=== PATIENT | female | born 1965 | race Caucasian/White ===

== ENCOUNTER 2021-03-16 18:22 | Emergency (ER) | payer OTHER, SELFPAY ==
--- NOTE | ~2021-03-16 | XR_ITS ---
EXAMINATION: XR chest 2V DATE: 03/16/2021 18:49 INDICATION: Cough and wheezing. TECHNIQUE: Frontal and lateral views of the chest were obtained. COMPARISON: None. FINDINGS: The chest demonstrates clear lungs without pneumonia, pleural effusion, or pneumothorax. Th e heart size is normal. IMPRESSION: 1. No acute cardiopulmonary disease. Reviewed, dictated and finalized at location A.
[2021-03-16 18:36] VITALS: BP 131/74; PULSE 66; RESP 16; TEMP 37; O2SAT 98
--- NOTE | 2021-03-16 18:36 | ED.URI ---
HPI - URI/Sore Throat General Chief Complaint: Upper Respiratory Infection Stated Complaint: Fever, chills, shortness of breath, coughing Time Seen by Provider: 03/16/21 18:36 Source: patient and RN notes reviewed Mode of arrival: ambulatory Limitations: no limitations History of Present Illness HPI Narrative: 55-year-old female presents to the [facility] with complaints of fever, chills, shortness of breath and coughing. Patient has a history of asthma. States she had 101 fever at work and was sent home. Patient reports that she had a positive exposure on Wednesday and again on Wednesday at work. Had a negative Covid rapid test done in [place]. Related Data Home Medications Medication Instructions Recorded Confirmed sertraline [Zoloft] 200 mg PO DAILY 07/08/19 03/16/21 Allergies Allergy/AdvReac Type Severity Reaction Status Date / Time moxifloxacin [From Avelox] Allergy Other Verified 03/16/21 18:51 Penicillins Allergy Swelling Verified 03/16/21 18:51 of Lip/Tongue/Throat Review of Systems Constitutional: Constitutional: Reports as per HPI, Reports chills and Reports fever(s) Eyes: Eyes: Reports no additional eye complaints ENT: Reports as per HPI and Reports nasal congestion Cardiovascular: Cardiovascular: Reports no additional cardiovascular complaints Respiratory: Respiratory: Reports as per HPI, Reports cough, Denies dyspnea and Reports wheezing Gastrointestinal: Gastrointestinal: Reports no additional gastrointestinal complaints, Denies abdominal pain, Denies nausea and Denies vomiting Genitourinary: Genitourinary: Reports no additional female genitourinary complaints Musculoskeletal: Musculoskeletal: Reports no additional musculoskeletal complaints Integumentary/Breasts: Skin/Breast: Reports system reviewed and no additional complaints, except as docu Neurologic: Reports system reviewed and no additional complaints, except as documented Psychiatric: Psychiatric: Reports no additional psychiatric complaints Allergic/Immunologic: Allergic/Immunologic: Reports no additional allergic/immunologic complaints ON LICENSE OF [facility] Past Medical History Medical History (Updated 03/16/21 @ 20:18 by Margie Denise) Asthma Dental abscess Sepsis Surgical History Surgical History Hx of sinus surgery Social History Social History Alcohol intake: never Substance use: never Comments At the time of my signature, I reviewed and agree with the nursing past medical, surgical, social, and family history. There is no relevant family history pertinent to the patient complaint. Exam Const: General: no acute distress, alert and ill appearing acutely Nutritional Appearance: obese Orientation/consciousness: patient oriented x3 Limitations: no limitations HENMT: Head: normal to inspection Ears: external ears normal, TM's normal bilaterally and EAC's normal Eyes: Conjunctivae: conjunctivae normal Pupils: Equal, round and reactive pupils present Neck: Neck: normal visual inspection, no lymphadenopathy and no meningeal signs Chest: Chest palpation & inspection: normal inspection of the chest Resp: Effort & Inspection: normal respiratory effort Auscultation: wheezes expiratory wheezes and throughout Cardio: Rate: regular rate GI: GI Palp: Yes Soft to palpation and No Tenderness to palpation present (GI) : General: Yes no CVA tenderness Back/Spine/Pelvis: Back: no CVA tenderness Skin: General skin exam: normal color Rashes: no rashes Wounds: no wounds Neuro: General: patient oriented x3, moves all extremities and no focal motor deficits Speech: normal speech Gait exam (Neuro): Normal gait present Extrem: General: normal to inspection and no pedal edema Psych: Appearance: grossly normal Mental Status: mental status grossly normal Affect: normal affect Attitude: cooperative Thought content: Yes Nor
[2021-03-16] MEDS: predniSONE 20 MG TABLET 40 MG PO (18:55)
[2021-03-16] MEDS: ALBUTEROL SULFATE NEB 2.5 MG/3 ML INH INHALATION (18:56)
[2021-03-16] MEDS: IPRATROPIUM BR 0.02% INH SOLN 0.5 MG/2.5 ML VIAL INHALATION (18:56)
[2021-03-16 19:30] VITALS: PULSE 68; RESP 20; O2SAT 98
[2021-03-18 19:42] LABS: SARS-CoV-2 RNA PCR Negative
== END 2021-03-16 19:45 | disposition home or self-care (01) ==
PROVIDERS: Emergency Provider Nurse Practitioner
DX: J45.901 Unspecified asthma with (acute) exacerbation (principal); Z20.822 Contact with and (suspected) exposure to COVID-19
CPT/HCPCS: 71046; 99213; C9803; G0463; J7512; U0003; U0005

== ENCOUNTER 2021-06-02 11:18 | Emergency (ER) | payer OTHER, SELFPAY ==
--- NOTE | ~2021-06-02 | XR_ITS ---
EXAMINATION: XR chest 2V DATE: 06/02/2021 11:49 INDICATION: Cough and shortness of breath TECHNIQUE: PA and lateral views of the chest are obtained. COMPARISON: 03/16/2021 FINDINGS: The lungs are free of acute opacities. There is no pleural effusion or pneumothorax. The ca rdiomediastinal silhouette is normal. Thoracic dextroscoliosis is noted. IMPRESSION: 1. No acute cardiopulmonary abnormality. Reviewed, dictated and finalized at location B. ONHOLE MAKER
[2021-06-02 11:26] VITALS: BP 127/73; PULSE 60; RESP 20; TEMP 37.2; O2SAT 98
--- NOTE | 2021-06-02 11:33 | ED.GENADULT ---
HPI - General Adult General Chief complaint: Upper Respiratory Infection Stated complaint: Cough/Runny Nose Time Seen by Provider: 06/02/21 11:22 Source: patient Mode of arrival: ambulatory Limitations: no limitations History of Present Illness HPI narrative: 55 y/o female. PMHx MDD, Chronic Asthma, Former Smoker, Obesity, [place]. Presents to [facility] today with acute complaints of non-productive cough and intermittent dyspnea for the past 48 hours. She is followed closely and managed by OP Pulmonology MD Tineo. Client seen in pulmonology clinic on 05/29/2021, and started on additional Z-Pack for asthma exacerbation. In addition, patient resumes CS Laba inhaler along with the rescue albuterol inhaler. Patient tells me that she was 'starting to feel better' with her Z-Pack, and now has developed worsening cough once more. Patient reports to have been around a family member who has pneumonia and she is concerned for potential CAP development. No fever, chills. No chest pain, palpitations, edema. No Covid 19 exposure or concern. No additional acute c/o illness upon PE. Related Data Home Medications Medication Instructions Recorded Confirmed sertraline [Zoloft] 100 mg PO DAILY 07/08/19 06/02/21 fluticasone propion-salmeterol See Rx Instructions .ROUTE .COMPLEX 06/02/21 06/02/21 [Wixela Inhub] meloxicam 7.5 mg PO BID 06/02/21 06/02/21 Allergies Allergy/AdvReac Type Severity Reaction Status Date / Time Iodinated Contrast Media Allergy Severe Rash Verified 06/02/21 11:26 moxifloxacin [From Avelox] Allergy Other Verified 06/02/21 11:26 Penicillins Allergy Swelling Verified 06/02/21 11:26 of Lip/Tongue/Throat Review of Systems Review of Systems: CONSTITUTIONAL: Denies fever, chills, sweats. EYES: Denies visual changes, redness, discharge. ENT: Denies rhinorrhea, congestion, sore throat, otalgia. CARDIOVASCULAR: Denies chest pain, palpitations, edema. RESPIRATORY: Positive cough, dyspnea. Denies wheezing. GASTROINTESTINAL: Denies abdominal pain, nausea, vomiting, diarrhea. GENITOURINARY: Denies dysuria, hematuria, abnormal discharge SKIN: Denies rash or itching. MUSCULOSKELETAL: Denies acute back pain, joint pain, or myalgia. NEUROLOGIC: Denies numbness, or focal weakness. PSYCHIATRIC: Denies anxiety or depression. All systems reviewed & are unremarkable except as noted in HPI and below PMFSH Past Medical History Medical History Asthma Dental abscess Sepsis Surgical History Surgical History Hx of sinus surgery Social History Social History Smoking packs per day: 2 Smoking cigarettes per day: 40.0 Years smoked: 25 Smoking pack-years: 50.00 Smoking status: Former smoker Alcohol intake: never Substance use: never Gender identity (if verbalized by the patient): Female Exam Narrative: GENERAL: This is a well-nourished, well-developed adult, in no apparent distress. HEAD: normocephalic, atraumatic. EYES: PERRL. Sclera clear/white. EARS: External ears normal NOSE: External nose normal. Positive Rhinorrhea, no obstruction, nares patent. THROAT: Mucous membranes moist, posterior pharynx clear. PND. No exudates. NECK: Neck supple, non-tender without lymphadenopathy, masses or thyromegaly. CARDIOVASCULAR: Regular rate and rhythm without murmurs, gallops, or rubs. No edema. RESPIRATORY: Upper airway Rhonchi, cleared with cough. Breath sounds equal bilaterally. No wheezes, rales, or rhonchi. GASTROINTESTINAL: Abdomen soft, non-tender, nondistended. Bowel sounds are active. No guarding. SKIN: warm, intact with no suspicious lesions or rash, good texture and turgor. NEURO: Alert, active, and age appropriate. No focal neurologic deficits. Course Vital Signs Vital signs: Vital Signs Temperatur
[2021-06-02 11:41] VITALS: BP 127/73; PULSE 60; RESP 20; TEMP 37.2; O2SAT 98
== END 2021-06-02 12:00 | disposition home or self-care (01) ==
PROVIDERS: Emergency Provider Nurse Practitioner Adult Health
DX: J45.21 Mild intermittent asthma with (acute) exacerbation (principal); Z87.891 Personal history of nicotine dependence; F32.9 Major depressive disorder, single episode, unspecified; E66.9 Obesity, unspecified; G47.33 Obstructive sleep apnea (adult) (pediatric)
CPT/HCPCS: 71046; 99213; G0463

== ENCOUNTER 2021-06-25 09:03 | Outpatient (CLI) | payer OTHER, SELFPAY ==
--- NOTE | 2021-06-25 11:16 | WPDPFTINT ---
PFT Procedure Performed PFT Procedure Performed Spirometry with Pre/Post Bronchodilator Plethysmography (Lung Vol) Diffusing Cap (DLCO) Flow Vol Loop PFT Interpretation Lung volumes were measured with the body plethysmography method. Lung volumes are unremarkable. Spirometry showed normal expiratory flow rates and a normal FEV1 to FVC ratio 75%. Following administration of a bronchodilator there was no significant increase in expiratory flow rates. Lung diffusion capacity is mildly reduced at 67% predicted. The flow volume loop is unremarkable. Impression: Spirometry lung volumes within the normal range. Mild reduction in lung diffusion capacity.
== END 2021-06-25 09:04 | disposition home or self-care (01) ==
LOC: ANHPFT 09:07
PROVIDERS: Visit Provider Internal Medicine Pulmonary Disease
DX: J45.909 Unspecified asthma, uncomplicated (principal)
CPT/HCPCS: 94060; 94726; 94729

== ENCOUNTER 2021-07-25 15:00 | Emergency (ER) | payer OTHER, SELFPAY ==
--- NOTE | ~2021-07-25 | XR_ITS ---
EXAMINATION: XR ribs RT 2V EXAM DATE: 07/25/2021 15:59 INDICATION: Initial encounter following injury, with pain of the right ribs. Fall. TECHNIQUE: Frontal projection of the upper right ribs, frontal projection of the lower right ribs, ob lique projection of the right ribs, without chest x-ray(s) for interpretation. Correlation is made to chest x-ray 06/02/2021. FINDINGS: There are no displaced acute right rib fractures identified. There is no soft tissue abno rmality seen. Mild to moderate thoracic scoliosis. IMPRESSION: No displaced right rib fractures. Reviewed, dictated and finalized at location A. IFIED PEDORTHOTIST
[2021-07-25 15:17] VITALS: BP 119/72; PULSE 60; RESP 20; TEMP 37.7; O2SAT 97
[2021-07-25 15:18] VITALS: BP 119/72; PULSE 60; RESP 20; TEMP 37.7; O2SAT 97
--- NOTE | 2021-07-25 15:48 | ED.FALL ---
HPI - Fall General Chief Complaint: Fall Stated Complaint: Fall Injury/Rib Pain Time Seen by Provider: 07/25/21 15:39 Source: patient and RN notes reviewed Mode of arrival: ambulatory Limitations: no limitations History of Present Illness HPI Narrative: 55-year-old female wendi, 1 on her ankle, 1 on her wrist. She reports a large bruise on her right flank area. She reports right rib pain when deep breathing and coughing. She denies intervention. MD complaint: fall Related Data Home Medications Medication Instructions Recorded Confirmed sertraline [Zoloft] 100 mg PO DAILY 07/08/19 06/02/21 Allergies Allergy/AdvReac Type Severity Reaction Status Date / Time Iodinated Contrast Media Allergy Severe Rash Verified 06/02/21 11:26 moxifloxacin [From Avelox] Allergy Other Verified 06/02/21 11:26 Penicillins Allergy Swelling Verified 06/02/21 11:26 of Lip/Tongue/Throat Review of Systems Review of Systems: CONSTITUTIONAL: Denies malaise, chills, sweats, or fever. CARDIOVASCULAR: Denies chest pain, palpitations, or edema. RESPIRATORY: Denies cough or dyspnea. SKIN: Reports bruising to the right flank area, bruising to the ankle and wrist MUSCULOSKELETAL: Reports right rib pain, worsening with deep breathing and coughing NEUROLOGIC: Denies numbness, weakness All systems reviewed & are unremarkable except as noted in HPI and below PMFSH Past Medical History Medical History Asthma Dental abscess Sepsis Surgical History Surgical History Hx of sinus surgery Social History Social History Smoking packs per day: 2 Smoking cigarettes per day: 40.0 Years smoked: 25 Smoking pack-years: 50.00 Smoking status: Former smoker Alcohol intake: never Substance use: never Gender identity (if verbalized by the patient): Female Comments At time of signature, agree with nursing past medical, surgical, social and family history. There is no relevant family history pertinent to the presenting complaint Exam Narrative: GENERAL: Well-appearing, well-nourished, and in no acute distress. HEAD: Normocephalic, atraumatic. EYES: PERRLA, sclera clear, and EOMI. No nystagmus. ENT: Mucous membranes moist. NECK: Supple. CHEST: No respiratory distress. Clear to auscultation right lung sounds mildly diminished. No bony deformities, no asymmetry. Speaks in full sentences. HEART: Regular rate and rhythm. No murmur heard. Normal peripheral pulses. SKIN: Warm, dry, no visible rash. Large dark little bruise on the right flank with a linear account resolution analyst colored bruise for the left rib area. Bruises noted to the right or left wrist and left ankle NEURO: Alert and oriented x3. PSYCH: Normal mood and affect Course Course Emergency Course: Patient is aware of diagnosis, understands and agrees to treatment plan. Anticipatory guidance given. Patient agrees to follow-up as directed and is aware of reasons to seek care at the emergency department. Portions of this record may have been created with voice recognition software Vital Signs Vital signs: Vital Signs Temperature 99.8 F H 07/25/21 15:17 Pulse Rate 60 07/25/21 15:17 Respiratory Rate 20 07/25/21 15:17 Blood Pressure 119/72 07/25/21 15:17 Pulse Oximetry 97 07/25/21 15:17 Temperature 99.8 F H 07/25/21 15:18 Pulse Rate 60 07/25/21 15:18 Respiratory Rate 20 07/25/21 15:18 Blood Pressure 119/72 07/25/21 15:18 Pulse Oximetry 97 07/25/21 15:18 Reviewed. MDM - Fall MDM Narrative Medical decision making narrative: Exam findings and imaging show no acute concerns or changes; patient is non-toxic appearing and is in no distress. Patient is appropriate for outpatient treatment and follow-up. Differential Diagnosis Differential diagnosis: Likely other (Rib fracture, pneumothorax, rib
== END 2021-07-25 16:22 | disposition home or self-care (01) ==
PROVIDERS: Emergency Provider Nurse Practitioner
DX: S20.211A Contusion of right front wall of thorax, initial encounter (principal); W19.XXXA Unspecified fall, initial encounter; J45.909 Unspecified asthma, uncomplicated; F17.210 Nicotine dependence, cigarettes, uncomplicated
CPT/HCPCS: 71100; 99213; G0463

== ENCOUNTER 2021-09-26 15:46 | Emergency (ER) | payer OTHER, SELFPAY ==
[2021-09-26 15:52] VITALS: BP 154/78; PULSE 60; RESP 14; TEMP 37.1; O2SAT 99
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
== END 2021-09-26 16:15 | disposition home or self-care (01) ==
PROVIDERS: Emergency Provider Nurse Practitioner Family
DX: M54.2 Cervicalgia (principal); Z87.891 Personal history of nicotine dependence; J45.909 Unspecified asthma, uncomplicated
CPT/HCPCS: 99213; G0463

== ENCOUNTER 2021-10-15 09:14 | Emergency (ER) | payer OTHER, SELFPAY ==
--- NOTE | 2021-10-15 09:19 | ED.NAVMDI ---
HPI - Nausea/Vomiting/Diarrhea General Chief complaint: Upper Respiratory Infection Stated complaint: Vomiting/Fever Time Seen by Provider: 10/15/21 09:15 Source: patient, family and RN notes reviewed History of Present Illness HPI Narrative: Patient is a 56-year-old female who presents the urgent care with her partner with complaints of fever, vomiting and diarrhea. Patient states the fever and vomiting started yesterday. Patient states that she is vomiting phlegm with a harsh cough . States that she had 4 loose stools this morning. Patient has not taken anything [id number] for her symptoms. States that she did have exposure to influenza A and her partner was sick this past week. Patient denies of any known contact to Covid. No other acute complaints. No acute distress noted. Patient aware of the plan of care. Some parts of this dictation were generated by voice recognition software and may contain typographical and/or grammatical inaccuracies. Related Data Home Medications Medication Instructions Recorded Confirmed sertraline [Zoloft] 200 mg PO DAILY 07/08/19 09/26/21 albuterol sulfate 2 puff INHALATION Q4H PRN 09/26/21 09/26/21 fluticasone propion-salmeterol 1 inh INHALATION BID 09/26/21 09/26/21 [Wixela Inhub] Allergies Allergy/AdvReac Type Severity Reaction Status Date / Time Iodinated Contrast Media Allergy Severe Rash Verified 10/15/21 09:28 moxifloxacin [From Avelox] Allergy Mild Rash Verified 10/15/21 09:28 Penicillins Allergy Mild Swelling Verified 10/15/21 09:28 of Lip/Tongue/Throat Review of Systems Review of Systems: CONSTITUTIONAL:. Reports a fever and fatigue EYES: Denies visual changes, redness, or discharge. ENT: Denies rhinorrhea, congestion, sore throat, or otalgia. CARDIOVASCULAR: Denies chest pain, palpitations, or edema. RESPIRATORY: Reports of harsh cough without dyspnea GASTROINTESTINAL: Reports of vomiting and loose stools without abdominal pain or nausea GENITOURINARY: Denies dysuria or hematuria. SKIN: Denies rash or itching. MUSCULOSKELETAL: Denies back pain, joint pain. Reports body aches NEUROLOGIC: Denies headache, numbness, or weakness. All other systems reviewed are negative, except as documented in HPI. [facility] Past Medical History Medical History Asthma Dental abscess Sepsis Surgical History Surgical History Hx of sinus surgery Social History Social History Smoking packs per day: 2 Smoking cigarettes per day: 40.0 Years smoked: 25 Smoking pack-years: 50.00 Smoking status: Former smoker Alcohol intake: never Substance use: never Gender identity (if verbalized by the patient): Female Comments At the time of my signature, I reviewed and agree with the nursing past medical, surgical, social, and family history. There is no relevant family history pertinent to the patient complaint. Exam Narrative: GENERAL: This is a well-nourished, well-developed patient. Appears fatigued HEAD: normocephalic, atraumatic. EYES: PERRL. Sclera clear/white. Vision is grossly intact. EARS: External ears normal, auditory canals clear and without drainage, TMs normal without perforation. Hearing grossly intact. NOSE: External nose normal with no obvious nasal discharge, nares without redness, clear to yellow rhinorrhea. THROAT: Mucous membranes moist, posterior pharynx clear. Moderate postnasal drainage NECK: Neck supple, non-tender without lymphadenopathy, masses or thyromegaly. CARDIOVASCULAR: Regular rate and rhythm without murmurs, gallops, or rubs. RESPIRATORY: Harsh cough noted on exam. clear to auscultation. Breath sounds equal bilaterally. No wheezes, rales, or rhonchi. GASTROINTESTINAL: Abdomen soft, non-tender, nondistended. Bowel sounds are active. SKIN: warm, intact with no suspic
[2021-10-15 09:21] VITALS: BP 125/60; PULSE 70; RESP 20; TEMP 37.9; O2SAT 98
[2021-10-16 07:45] LABS: SARS-CoV-2 RNA PCR Negative
== END 2021-10-15 09:55 | disposition home or self-care (01) ==
PROVIDERS: Emergency Provider Nurse Practitioner Family
DX: B34.9 Viral infection, unspecified (principal); Z20.822 Contact with and (suspected) exposure to COVID-19; J45.909 Unspecified asthma, uncomplicated; Z87.891 Personal history of nicotine dependence
CPT/HCPCS: 87081; 87426; 87804; 87880; 99213; C9803; G0463; U0003; U0005

== ENCOUNTER 2021-11-25 09:17 | Emergency (ER) | payer OTHER, SELFPAY ==
[2021-11-25 09:20] VITALS: BP 123/61; PULSE 60; RESP 14; TEMP 36.9; O2SAT 97
--- NOTE | 2021-11-25 09:22 | ED.URI ---
HPI - URI/Sore Throat General Chief Complaint: Upper Respiratory Infection Stated Complaint: Sinus Congestion Time Seen by Provider: 11/25/21 09:23 Source: patient, family and RN notes reviewed History of Present Illness HPI Narrative: Patient is a 56-year-old female who presents the urgent care with complaints of sinus congestion and cough. Patient states been ongoing for approximately 1 month since her last visit to our facility. Patient states that she was negative for COVID, influenza and strep all at that time. Patient's primary care doctor has not made it a priority to get the patient into the office. Patient states she now has right facial pressure and swelling. Patient has had a lot of dental work and is concerned she now has an abscess on top of her sinus infection. Patient reports of chills and sweats last night with low-grade fever. Patient has been taking Claritin for her symptoms. No other acute complaints. No acute distress noted. Patient aware of the plan of care. Some parts of this dictation were generated by voice recognition software and may contain typographical and/or grammatical inaccuracies. Related Data Home Medications Medication Instructions Recorded Confirmed sertraline [Zoloft] 200 mg PO DAILY 07/08/19 10/15/21 albuterol sulfate 2 puff INHALATION Q4H PRN 09/26/21 10/15/21 fluticasone propion-salmeterol 1 inh INHALATION BID 09/26/21 10/15/21 [Wixela Inhub] Allergies Allergy/AdvReac Type Severity Reaction Status Date / Time Iodinated Contrast Media Allergy Severe Rash Verified 10/15/21 09:28 moxifloxacin [From Avelox] Allergy Mild Rash Verified 10/15/21 09:28 Penicillins Allergy Mild Swelling Verified 10/15/21 09:28 of Lip/Tongue/Throat Review of Systems Review of Systems: CONSTITUTIONAL: D reports a fever with chills and sweats EYES: Denies visual changes, redness, or discharge. ENT: Reports of rhinorrhea, sinus congestion, right facial pain/swelling and postnasal drainage CARDIOVASCULAR: Denies chest pain, palpitations, or edema. RESPIRATORY: Reports of cough without dyspnea GASTROINTESTINAL: Denies abdominal pain, nausea, vomiting, or diarrhea. GENITOURINARY: Denies dysuria or hematuria. SKIN: Denies rash or itching. MUSCULOSKELETAL: Denies back pain, joint pain, or myalgia. NEUROLOGIC: Denies headache, numbness, or weakness. All other systems reviewed are negative, except as documented in HPI. [facility] Past Medical History Medical History Asthma Dental abscess Sepsis Surgical History Surgical History Hx of sinus surgery Social History Social History Smoking packs per day: 2 Smoking cigarettes per day: 40.0 Years smoked: 25 Smoking pack-years: 50.00 Smoking status: Former smoker Alcohol intake: never Substance use: never Gender identity (if verbalized by the patient): Female Comments At the time of my signature, I reviewed and agree with the nursing past medical, surgical, social, and family history. There is no relevant family history pertinent to the patient complaint. Exam Narrative: GENERAL: This is a well-nourished, well-developed patient, in no apparent distress. HEAD: normocephalic, atraumatic. Very mild right upper facial swelling and tenderness EYES: PERRL. Sclera clear/white. Vision is grossly intact. EARS: External ears normal, auditory canals clear and without drainage, TMs normal without perforation. Hearing grossly intact. NOSE: External nose normal with no obvious nasal discharge, nares without redness, no rhinorrhea. THROAT: Mucous membranes moist, posterior pharynx clear. Moderate postnasal drainage ENT: Carious lesions and missing dentition noted throughout NECK: Neck supple, non-tender without lymphadenopathy CARDIOVASCULAR: Regular rate and rhythm without murmurs, g
== END 2021-11-25 10:00 | disposition home or self-care (01) ==
PROVIDERS: Emergency Provider Nurse Practitioner Family
DX: J32.9 Chronic sinusitis, unspecified (principal); R22.0 Localized swelling, mass and lump, head; J45.909 Unspecified asthma, uncomplicated; Z87.891 Personal history of nicotine dependence
CPT/HCPCS: 99213; G0463

== ENCOUNTER 2022-12-02 17:33 | Emergency (ER) | payer OTHER, SELFPAY ==
[2022-12-02 17:45] VITALS: BP 133/76; PULSE 85; RESP 18; TEMP 36.9; O2SAT 97
--- NOTE | 2022-12-02 18:02 | ED.URI ---
HPI - URI/Sore Throat General Chief Complaint: Upper Respiratory Infection Stated Complaint: cold/flu Time Seen by Provider: 12/02/22 18:14 Source: patient and RN notes reviewed Mode of arrival: ambulatory Limitations: no limitations History of Present Illness HPI Narrative: 57-year-old female presents with concern for one-week history of cough, shortness of breath, nasal congestion, rhinorrhea. She reports history of asthma. MD elicited complaint: cough Related Data Home Medications Medication Instructions Recorded Confirmed hydrocodone 5 mg-acetaminophen 325 1 tablet PO Q6H PRN Pain 12/02/22 12/02/22 mg tablet Allergies Allergy/AdvReac Type Severity Reaction Status Date / Time Iodinated Contrast Media Allergy Severe Rash Verified 11/25/21 10:33 moxifloxacin [From Avelox] Allergy Mild Rash Verified 11/25/21 10:33 Penicillins Allergy Mild Swelling Verified 11/25/21 10:33 of Lip/Tongue/Throat Review of Systems Review of Systems: CONSTITUTIONAL: Reports malaise, low-grade fever. EYES: Denies visual changes, redness, or discharge. ENT: Reports rhinorrhea, congestion. Denies sinus pain, otalgia and sore throat. CARDIOVASCULAR: Denies chest pain, palpitations, or edema. RESPIRATORY: Reports cough, episodic dyspnea. GASTROINTESTINAL: Denies abdominal pain, nausea, vomiting, diarrhea SKIN: Denies rash or itching. MUSCULOSKELETAL: Denies myalgia. NEUROLOGIC: Denies headache. All systems reviewed & are unremarkable except as noted in HPI and below PMFSH Past Medical History Medical History Asthma Dental abscess Sepsis Surgical History Surgical History Hx of sinus surgery Social History Social History Smoking packs per day: 2 Smoking cigarettes per day: 40.0 Years smoked: 25 Smoking pack-years: 50.00 Smoking status: Former smoker Alcohol intake: never Substance use: never Living arrangements: with family Occupation/Education: occupation Gender identity (if verbalized by the patient): Female Comments At time of signature, agree with nursing past medical, surgical, social and family history. There is no relevant family history pertinent to the presenting complaint Exam Narrative: GENERAL: Well-appearing, well-nourished, and in no acute distress. HEAD: Normocephalic EYES: PERRLA, conjunctivae clear ENT: Nares clear, turbinates edematous and erythematous, clear discharge. Mucous membranes moist. TM pearly chappell with dull light reflex bilaterally; no tragal tenderness. Oropharynx not erythematous without lesions. Tonsils not enlarged and without exudate, no drooling, no hoarseness, no trismus, uvula midline. NECK: Supple. No lymphadenopathy CHEST: Inspira taurine expiratory wheeze, scattered rhonchi, aeration good, breath sounds equal. No rales, or stridor. No respiratory distress, speaks in full sentences. HEART: Regular rate and rhythm. No murmur heard. SKIN: Warm, dry, no rash. NEURO: Alert and oriented x3. PSYCH: Normal mood and affect Course Course Emergency Course: Patient is aware of diagnosis, understands and agrees to treatment plan. Anticipatory guidance given. Patient agrees to follow-up as directed and is aware of reasons to seek care at the emergency department. Portions of this record may have been created with voice recognition software Level of Care: Express Care Visit Vital Signs Vital signs: Vital Signs Temperature 98.5 F 12/02/22 17:45 Pulse Rate 85 12/02/22 17:45 Respiratory Rate 18 12/02/22 17:45 Blood Pressure 133/76 12/02/22 17:45 Pulse Oximetry 97 12/02/22 17:45 Oxygen Delivery Room Air 12/02/22 17:45 Temperature 98.5 F 12/02/22 17:45 Pulse Rate 85 12/02/22 17:45 Respiratory Rate 18 12/02/22 17:45 Blood Pressure 133/76 12/02/22 17:45
== END 2022-12-02 18:25 | disposition home or self-care (01) ==
PROVIDERS: Emergency Provider Nurse Practitioner
DX: J45.901 Unspecified asthma with (acute) exacerbation (principal); Z87.891 Personal history of nicotine dependence
CPT/HCPCS: 99213; G0463

== ENCOUNTER 2023-05-30 14:05 | Emergency (ER) | payer OTHER, SELFPAY ==
[2023-05-30 14:12] VITALS: BP 122/66; PULSE 69; RESP 20; TEMP 37.2; O2SAT 98
--- NOTE | 2023-05-30 15:11 | ED.GENADULT ---
HPI - General Adult General Chief complaint: Eye Problems Stated complaint: right eye Source: patient Mode of arrival: ambulatory Limitations: no limitations History of Present Illness HPI narrative: Patient presents evaluation of right eye irritation. She indicates she was cooking this morning and felt something going to her right eye. She has experienced a sensation of a foreign body in her eye since that time. She notes tearing, redness, burning sensation and blurred vision. She denies any pain or other visual disturbances. She wears glasses for reading but does not were contacts. Related Data Home Medications Medication Instructions Recorded Confirmed sertraline 100 mg tablet 200 mg PO DIRECTED 05/30/23 05/30/23 Allergies Allergy/AdvReac Type Severity Reaction Status Date / Time Iodinated Contrast Media Allergy Severe Rash Verified 05/30/23 14:40 moxifloxacin [From Avelox] Allergy Mild Rash Verified 05/30/23 14:40 Penicillins Allergy Mild Swelling Verified 05/30/23 14:40 of Lip/Tongue/Throat Review of Systems Review of Systems: CONSTITUTIONAL: Denies fever, chills, or sweats. EYES: Reports right eye redness, burning, tearing, and blurred vision ENT: Denies rhinorrhea, congestion, sore throat, or otalgia. CARDIOVASCULAR: Denies chest pain, palpitations, or edema. RESPIRATORY: Denies cough or dyspnea. GASTROINTESTINAL: Denies abdominal pain, nausea, vomiting, or diarrhea. GENITOURINARY: Denies dysuria or hematuria. SKIN: Denies rash or itching. MUSCULOSKELETAL: Denies back pain, joint pain, or myalgia. NEUROLOGIC: Denies headache, numbness, dizziness, or weakness. PSYCHIATRIC: Denies anxiety or depression. [facility] Past Medical History Medical History Asthma Dental abscess Sepsis Surgical History Surgical History Hx of sinus surgery Family History Family History Mother Family history non-contributory Social History Social History Smoking packs per day: 2 Smoking cigarettes per day: 40.0 Years smoked: 25 Smoking pack-years: 50.00 Smoking status: Former smoker Alcohol intake: never Substance use: never Living arrangements: with family Occupation/Education: occupation Gender identity (if verbalized by the patient): Female Sexual Orientation (if Verbalized by the Patient): Straight or Heterosexual Spiritual care concerns: No Exam Narrative: GENERAL: Well-appearing, well-nourished, and in no acute distress. HEAD: Normocephalic, atraumatic. EYES: PERRLA and EOMI. Right conjunctival injection with tearing noted. There is dye uptake noted at 3 o'clock and 8 o'clock positions when evaluated with fluorescein and Wood's lamp evaluation ENT: Nares clear, no rhinorrhea or epistaxis. Mucous membranes moist. Oropharynx without tonsillar hypertrophy exudate or other lesions. Bilateral TMs pearly chappell nonbulging NECK: Supple. No adenopathy or masses. No carotid bruits or JVD CHEST: Clear to auscultation. No respiratory distress. No wheezes rales or rhonchi HEART: Regular rate and rhythm. No murmur heard. Normal peripheral pulses. ABDOMEN: Soft, nontender, nondistended, normal active bowel sounds. EXTREMITIES: Normal range of motion. No edema. SKIN: Warm, dry, no rash. NEURO: No focal deficits. Alert and oriented x3. PSYCH: Normal mood and affect. Course Course Emergency Course: This is a 57-year-old female who presented for evaluation of right eye redness, tearing, sensation of foreign body in the eye and burning. She has evidence of corneal abrasions. Will dc with erythromycin. Follow up with primary provider. Go to the emergency department for worsening symptoms. Patient in agreement with plan of care. Level of Car
== END 2023-05-30 15:21 | disposition home or self-care (01) ==
PROVIDERS: Emergency Provider Nurse Practitioner
DX: S05.01XA Injury of conjunctiva and corneal abrasion without foreign body, right eye, initial encounter (principal); X58.XXXA Exposure to other specified factors, initial encounter; J45.909 Unspecified asthma, uncomplicated; Z87.891 Personal history of nicotine dependence
CPT/HCPCS: 99213; A9270; G0463

== ENCOUNTER 2023-11-20 17:19 | Emergency (ER) | payer OTHER, SELFPAY ==
[2023-11-20 17:25] VITALS: BP 119/68; PULSE 57; RESP 16; TEMP 36.6; O2SAT 100
--- NOTE | 2023-11-20 17:37 | ED.GENADULT ---
HPI - General Adult General Chief complaint: Unspecified Stated complaint: feels like a chicken bone is stuck in throat Source: patient, family, RN notes reviewed and old records reviewed Mode of arrival: ambulatory Limitations: no limitations History of Present Illness HPI narrative: 50-year-old female presents to [facility] with complaint foreign body in throat. Patient states was eating chicken noodle soup and believes she swallowed a chicken bone that is now lodged in her throat. Patient states able to drink water but when she lays down she feels like she is choking. Patient cancelling secretions, patient's airway patent, patient without signs or symptoms acute distress. Related Data Home Medications Medication Instructions Recorded Confirmed sertraline 100 mg tablet 200 mg PO DIRECTED 05/30/23 05/30/23 Allergies Allergy/AdvReac Type Severity Reaction Status Date / Time Iodinated Contrast Media Allergy Severe Rash Verified 05/30/23 14:40 moxifloxacin [From Avelox] Allergy Mild Rash Verified 05/30/23 14:40 Penicillins Allergy Mild Swelling Verified 05/30/23 14:40 of Lip/Tongue/Throat Review of Systems Constitutional: Constitutional: Reports no additional constitutional complaints, Denies body ache(s), Denies chills, Denies fatigue, Denies fever(s) and Denies headache(s) Eyes: Eyes: Reports no additional eye complaints and Denies blurry vision ENT: Reports system reviewed and no additional complaints, except as documented, Reports as per HPI, Denies change in voice, Denies vertigo, Denies dizziness, Denies ear discharge, Denies otalgia, Denies facial pain, Denies headache(s), Denies hoarseness, Denies nasal congestion, Denies nasal discharge, Denies nasal trauma, Denies neck mass, Denies sinus pain, Denies sinus pressure, Reports sore throat and Denies throat swelling Cardiovascular: Cardiovascular: Reports no additional cardiovascular complaints, Denies chest pain, Denies chest pain at rest, Denies rapid heart rate and Denies dyspnea Respiratory: Respiratory: Reports no additional respiratory complaints, Denies chest congestion, Denies cough, Denies pain on inspiration, Denies pain with cough and Denies dyspnea Gastrointestinal: Gastrointestinal: Denies abdominal pain, Denies diarrhea, Denies nausea and Denies vomiting Integumentary/Breasts: Skin/Breast: Denies rash Neurologic: Reports system reviewed and no additional complaints, except as documented, Denies vertigo, Denies dizziness and Denies headache(s) Endocrine: Endocrine: Denies fatigue PMFSH Past Medical History Medical History Asthma Dental abscess Sepsis Surgical History Surgical History Hx of sinus surgery Family History Family History Mother Family history non-contributory Social History Social History Smoking packs per day: 2 Smoking cigarettes per day: 40.0 Years smoked: 25 Smoking pack-years: 50.00 Smoking status: Former smoker Alcohol intake: never Substance use: never Living arrangements: with family Occupation/Education: occupation Gender identity (if verbalized by the patient): Female Sexual Orientation (if Verbalized by the Patient): Straight or Heterosexual Spiritual care concerns: No Comments At the time of my signature, I reviewed and agree with the nursing past medical, surgical, social, and family history. There is no relevant family history pertinent to the patient complaint. Exam Const: General: cooperative, healthy appearing, no acute distress and well nourished Nutritional Appearance: well nourished Orientation/consciousness: patient oriented x3 Limitations: no limitations HENMT: Head: normal to inspection and normocephalic Ears: external ears normal Face/
== END 2023-11-20 17:53 | disposition short-term general hospital (02) ==
LOC: EXPBETH 17:22
PROVIDERS: Emergency Provider Registered Nurse
DX: T18.128A Food in esophagus causing other injury, initial encounter (principal); Z87.891 Personal history of nicotine dependence; J45.909 Unspecified asthma, uncomplicated
CPT/HCPCS: 99212; G0463

== ENCOUNTER 2024-07-03 12:49 | Emergency (ER) | payer OTHER, SELFPAY ==
[2024-07-03 12:52] VITALS: BP 156/83; PULSE 65; RESP 20; TEMP 36.3; O2SAT 98
--- NOTE | 2024-07-03 13:19 | ED.URI ---
HPI - URI/Sore Throat General Chief Complaint: Upper Respiratory Infection Stated Complaint: throat/stiff neck and back Time Seen by Provider: 07/03/24 13:19 Source: patient Mode of arrival: ambulatory Limitations: no limitations History of Present Illness HPI Narrative: 58-year-old female presents with complaint of nasal congestion, sore throat, fatigue, coughing, sore throat for 2 days. Patient reports temperature yesterday was 101.2F. Is taking [id number] medications to treat symptoms. Reports nausea, vomiting x1. No chest pain or shortness of breath. Is able to keep down fluids. All systems reviewed and negative except as noted above. Related Data Home Medications Medication Instructions Recorded Confirmed sertraline 100 mg tablet 200 mg PO DIRECTED 05/30/23 05/30/23 Allergies Allergy/AdvReac Type Severity Reaction Status Date / Time Iodinated Contrast Media Allergy Severe Rash Verified 05/30/23 14:40 moxifloxacin [From Avelox] Allergy Mild Rash Verified 05/30/23 14:40 Penicillins Allergy Mild Swelling Verified 05/30/23 14:40 of Lip/Tongue/Throat Review of Systems Review of Systems: CONSTITUTIONAL: Reports fever, chills, or sweats. EYES: Denies visual changes, redness, or discharge. ENT: reports rhinorrhea, congestion, sore throat. Denies otalgia. CARDIOVASCULAR: Denies chest pain, palpitations, or edema. RESPIRATORY: reports cough. Denies dyspnea. GASTROINTESTINAL: Denies abdominal pain, nausea, vomiting, or diarrhea. GENITOURINARY: Denies dysuria or hematuria. SKIN: Denies rash or itching. MUSCULOSKELETAL: Denies back pain, joint pain, or myalgia. NEUROLOGIC: Denies headache, numbness, or weakness. PSYCHIATRIC: Denies anxiety or depression. All other systems reviewed are negative, except as documented in HPI. [facility] Past Medical History Medical History Asthma Dental abscess Sepsis Surgical History Surgical History Hx of sinus surgery Family History Family History Mother Family history non-contributory Social History Social History Smoking packs per day: 2 Smoking cigarettes per day: 40.0 Years smoked: 25 Smoking pack-years: 50.00 Smoking status: Former smoker Alcohol intake: never Substance use: never Living arrangements: with family Occupation/Education: occupation Gender identity (if verbalized by the patient): Female Sexual Orientation (if Verbalized by the Patient): Straight or Heterosexual Spiritual care concerns: No Comments At time of signature, agree with nursing past medical, surgical, social and family history. There is no relevant family history pertinent to the presenting complaint. Exam Narrative: GENERAL: This is a well-nourished, well-developed patient, ill-appearing but no acute distress HEAD: normocephalic, atraumatic. EYES: PERRL. Sclera clear/white. Vision is grossly intact. EARS: External ears normal, auditory canals clear and without drainage, TMs normal without perforation. Hearing grossly intact. NOSE: External nose normal with Moderate congestion with clear nasal drainage THROAT: Mucous membranes moist, posterior pharynx is erythematous with mild swelling, clear postnasal drainage. No exudates. NECK: Neck supple, non-tender without lymphadenopathy, masses or thyromegaly. CARDIOVASCULAR: Regular rate and rhythm without murmurs, gallops, or rubs. RESPIRATORY: Clear to auscultation. Breath sounds equal bilaterally. No wheezes, rales, or rhonchi. SKIN: warm, Dry, intact with no suspicious lesions or rash, good texture and turgor. NEURO: awake, alert, and oriented to person, place and time. There were no obvious focal neurologic abnormalities. EXTREMITIES: No joint tenderness, effusion, or edema noted. Course Course Level of Care: Express Care Visit Vital Signs Vital signs: Vital Signs Temperature 36.3 C L 07/03/24 12:52 Pulse Rate 65 07/03/24 12:52 Respiratory Rate 20 07/03/24 12:52 Blood Pressure 156/83 H 07/03/24 12:52 Pulse Oximetry 98 07/03/24 12:52 Oxygen Delivery Room Air 07/03/24 12:52 Temperature 36.3 C L 07/03/24 12:52 Pulse Rate 65 07/03/24 12:52 Respiratory Rate 20 07/03/24 12:52 Blood Pressure 156/83 H 07/03/24 12:52 Pulse Oximetry 98 07/03/24 12:52 Oxygen Delivery Room Air 07/03/24 12:52 reviewed MDM - URI/Sore Throat MDM Narrative Medical decision making narrative: Patient is aware of diagnosis, understands and agrees to treatment plan. Anticipatory guidance given. Patient agrees to follow-up as directed and is aware of reasons to seek care at the emergency department. Portions of this record may have been created with voice recognition software negative COVID, influenza and strep test. Recommend patient take [id number] medications to treat viral symptoms. Lungs are clear to auscultation, Nontoxic Differential Diagnosis Differential diagnosis: Likely upper respiratory infection, sinusitis, viral infection, influenza and pharyngitis Discharge Plan Discharge Clinical Impression: Viral upper respiratory tract infection with cough Patient Disposition: Home, Self-Care Condition: Stable Instructions: Upper Respiratory Infection (ED) Additional Instructions: your COVID, influenza and strep test were negative today. Your symptoms are viral and may last 10-14 days. Take [id number] medications to treat her symptoms such as DayQuil NyQuil cold and flu. Take ibuprofen every 6-8 hours as needed for pain and fever. Drink at least 64 oz of water a day. Follow-up with your primary care physician if symptoms are not improving. Prescriptions: No Action sertraline 100 mg tablet 200 mg PO DIRECTED Follow-up/Referrals: PHYSICIAN NOT ON STAFF,NONSTAFF [Primary Care Provider] - Stand Alone Forms: Work/School Release IP Time of Disposition: 13:46
[2024-07-03 13:46] LABS: EDCOVIDSCREEN Negative (Negative); EDINFLUASCREEN Negative (Negative); EDINFLUBSCREEN Negative (Negative); EDSTREPNEGPOS1 Negative (Negative)
== END 2024-07-03 13:53 | disposition home or self-care (01) ==
PROVIDERS: Emergency Provider Nurse Practitioner Family
DX: J06.9 Acute upper respiratory infection, unspecified (principal); R05.9 Cough, unspecified; Z20.822 Contact with and (suspected) exposure to COVID-19; Z87.891 Personal history of nicotine dependence; J45.909 Unspecified asthma, uncomplicated
CPT/HCPCS: 87081; 87426; 87804; 87880; 99213; G0463